=== PATIENT | female | born 1975 | race Caucasian/White ===

== ENCOUNTER 2019-05-16 04:55 | Day surgery (SDC) | payer BC ==
[2019-05-07 14:14] VITALS: BMI 28.9
[2019-05-16] MEDS ORDERED: MIDAZOLAM HCL 2 MG/2 ML SINGLE DOSE VIAL ONE (07:22)
[2019-05-16] MEDS ORDERED: PROPOFOL 20 ML ONE ×5 (07:23→07:24)
--- NOTE | 2019-05-16 07:28 | HP ---
Admitting History and Physical - Admission Chief Complaint: Prolonged menses History of Present Illness: 44 yo Para 2, with 2 prior c-sections, is pre op for D&C hysteroscopy. She's been experiencing prolonged and heavy menses. History Source: Patient Limitations to Obtaining History: No Limitations - Past Medical History ...LMP: 04/14/19 ...: No ...Para: 2 - Past Surgical History Past Surgical History: Yes: - Smoking History Smoking history: Never smoked Have you smoked in the past 12 months: No - Alcohol/Substance Use Hx Alcohol Use: No - Social History History of Recent Travel: No Home Medications - Allergies Allergies/Adverse Reactions: Allergies Allergy/AdvReac Type Severity Reaction Status Date / Time No Known Allergies Allergy Verified 05/16/19 06:44 - Home Medications Home Medications: Ambulatory Orders Levonorgest/Eth.estradiol/Iron [Balcoltra Tablet] 1 each PO DAILY 05/07/19 Family Medical History Family History: Unremarkable Review of Systems - Review of Systems Constitutional: reports: No Symptoms Eyes: reports: No Symptoms HENT: reports: No Symptoms Neck: reports: No Symptoms Cardiovascular: reports: No Symptoms Respiratory: reports: No Symptoms Gastrointestinal: reports: No Symptoms Genitourinary: reports: Vaginal Bleeding Breasts: reports: No Symptoms Reported Musculoskeletal: reports: No Symptoms Integumentary: reports: No Symptoms Neurological: reports: No Symptoms Endocrine: reports: No Symptoms Hematology/Lymphatic: reports: No Symptoms Psychiatric: reports: No Symptoms Pain Intensity: 0 Physical Examination Vital Signs: Vital Signs Temperature 98.5 F 05/16/19 06:41 Pulse Rate 76 05/16/19 06:41 Respiratory Rate 18 05/16/19 06:41 Blood Pressure 128/77 05/16/19 06:41 O2 Sat by Pulse Oximetry (%) 100 05/16/19 06:41 Constitutional: Yes: Well Nourished Eyes: Yes: Conjunctiva Clear HENT: Yes: Atraumatic Neck: Yes: Supple Cardiovascular: Yes: Regular Rate and Rhythm Respiratory: Yes: Regular Gastrointestinal: Yes: Normal Bowel Sounds ...Rectal Exam: Yes: WNL Renal/: Yes: Vaginal Bleeding Breast(s): Yes: WNL Musculoskeletal: Yes: WNL Extremities: Yes: WNL Neurological: Yes: Alert, Oriented ...Motor Strength: WNL Psychiatric: Yes: Alert, Oriented Problem List - Problems (1) Menorrhagia Code(s): N92.0 - EXCESSIVE AND FREQUENT MENSTRUATION WITH REGULAR CYCLE Qualifiers: Menorrahagia type: with regular cycle Qualified Code(s): N92.0 - Excessive and frequent menstruation with regular cycle Assessment/Plan Menorrhagia Pre op for D&C hysteroscopy Consent signed Anesthesia to see patient
--- NOTE | 2019-05-16 08:13 | OP ---
Operative Note - Note: Operative Date: 05/16/19 Pre-Operative Diagnosis: Menorrhagia Operation: D&C Hysteroscopy Post-Operative Diagnosis: Same as Pre-op Surgeon: Preeti Cadena Anesthesia: General Specimens Removed: Endometrial curettings Estimated Blood Loss (mls): 10 Operative Report Dictated: Yes
[2019-05-16] MEDS ORDERED: ONDANSETRON 4 MG/2 ML VIAL IVPUSH PRN (08:43)
[2019-05-16] MEDS ORDERED: oxyCODONE HCL 5 MG TABLET PO PRN (08:43)
[2019-05-16] MEDS ORDERED: LACTATED RINGERS SOLUTION 1,000 ML IV SCH (08:45)
[2019-05-16 09:43] VITALS: TEMP 97.6
--- NOTE | 2019-05-16 10:13 | OP ---
DATE OF OPERATION: 05/16/2019 PREOPERATIVE DIAGNOSIS: Menorrhagia. POSTOPERATIVE DIAGNOSIS: Menorrhagia. PROCEDURE: Dilation and curettage, hysteroscopy. SURGEON: Preeti Cadena MD ANESTHESIA: General. COMPLICATIONS: None. ESTIMATED BLOOD LOSS: 10 mL. DESCRIPTION OF PROCEDURE: Patient was taken to the operating room where general anesthesia was administered. Patient was placed in lithotomy position. She was then prepped and draped in proper sterile fashion. An elongated speculum was placed in the vagina. The anterior lip of the cervix was grasped with a single-tooth tenaculum. Then the 5-mm hysteroscope was gently introduced into the uterine cavity. The cavity was very fluffy, a lot of tissue noticed in the cavity. The cervical os was dilated with Kraft dilators. Then a sharp curettage was then performed. The instruments were removed. The patient was taken out of lithotomy position. She was taken to PACU in stable condition. PATHOLOGY: Endometrial curettings. Jozef [id number] MTDD
--- NOTE | 2019-05-19 18:31 | PATH ---
Surgical Pathology Report Patient Name: YULIANA HAYNES Med. Rec. #: [id number] /Age/Gender: 1975 (Age: 44) / F Account: [id number] Location: [facility] Taken: 05/16/2019 Received: 05/16/2019 Reported: 05/19/2019 Physicians: Preeti Cadena M.D. Specimen(s) Received ENDOMETRIAL CURETTINGS Clinical History Menorrhagia Final Diagnosis ENDOMETRIAL CURETTINGS: ENDOMETRIAL POLYP. SEPARATE SECRETORY TYPE ENDOMETRIUM WITH POLYPOID DECIDUALIZED STROMA, SEE COMMENT. SEPARATES ENDOCERVICAL TISSUE WITH NO SIGNIFICANT PATHOLOGIC CHANGE. Comment: Findings may represent exogenous hormone effect. Suggest clinical correlation. Electronically Signed Yesenia Pyle M.D. Gross Description Received in formalin, labeled "endometrial curettings" are multiple figueroa, irregular portions of soft tissue measuring 4.0 x 4.0 x 0.4 cm. in aggregate. The specimen is submitted in toto in two cassettes. anatoliy/05/19/2019
[2019-05-20 06:14] VITALS: BP 120/70; PULSE 60
== END 2019-05-16 11:00 | disposition home or self-care (01) ==
LOC: JASU-SURG 04:55
PROVIDERS: ATTEND Obstetrics & Gynecology
PROC: 0UDB7ZX Extraction of Endometrium, Via Natural or Artificial Opening, Diagnostic (ICD-10-PCS; principal; 2019-05-16 07:30)
PROC: 0UJD8ZZ Inspection of Uterus and Cervix, Via Natural or Artificial Opening Endoscopic (ICD-10-PCS; 2019-05-16 07:30)
DX: N92.0 Excessive and frequent menstruation with regular cycle (principal)
CPT/HCPCS: 84703; 88305-TC; 94760